=== PATIENT | female | born 1995 ===

== ENCOUNTER 2016-12-31 07:23 | Inpatient (IN) ==
[2016-12-31] MEDS ORDERED: BUTORPHANOL 2 MG/ML VIAL IV PRN (09:41)
[2016-12-31] MEDS ORDERED: ONDANSETRON 4 MG/2 ML VIAL IV PRN (09:41)
[2016-12-31] MEDS ORDERED: MEPERIDINE 50 MG/1 ML VIAL IV PRN (09:41)
[2016-12-31] MEDS ORDERED: OXYTOCIN/LR 20 UNIT/1,000 ML BAG IV SCH (10:00)
[2016-12-31] MEDS ORDERED: LACTATED RINGERS 1,000 ML IV SCH (10:00)
[2016-12-31 10:11] LABS: Basophils % 0.2 % (0.0-0.8); Eosinophils # 0.1 10*3/uL (0.0-0.87); Eosinophils % 1.5 % (0.00-10.9); Hematocrit 33.8 VOL% (35.7-47.0); Hemoglobin 11.9 GM/DL (12.0-16.0); Immature Granulocytes % 0.8 %; Immature Granulocytes Absolute 0.05 #; Lymphocytes # 1.4 10*3/uL (1.4-4.0); Lymphocytes % 23.3 % (21.3-54.2); Mean Corpuscular HGB Conc 35.2 GM/DL (32-36); Mean Corpuscular Hemoglobin 31 PG (27-34); Mean Corpuscular Volume 86.9 FL (87-102); Mean Platelet Volume 10.4 FL (9.6-12.0); Monocytes # 0.7 10*3/uL (0.11-0.8); Monocytes % 10.8 % (1.7-12.7); Neutrophils # 3.9 10*3/uL (1.4-7.4); Neutrophils % 63.4 % (38.7-73.9); Platelet Count 210 T/CUMM (130-400); Red Blood Count 3.89 MC/CUMM (3.8-5.5); Red Cell Distribution Width 12.7 % (9.3-17.3); White Blood Count 6.1 T/CUMM (4-12)
[2016-12-31 10:29] LABS: Albumin 2.8 G/DL (3.4-5.0); Bilirubin,Total 0.7 MG/DL (0.2-1.0); Calcium 7.9 MG/DL (8.5-10.1); Osmolality,Calculated 275.4 MOS/KG (273-304); Total Protein 6.2 G/DL (6.4-8.3); Uric Acid 4.9 MG/DL (2.6-6.0)
[2016-12-31] MEDS ORDERED: AMPICILLIN INJ 2,000 MG in SODIUM CHLORIDE 0.9% 50 ML IV SCH (10:30)
[2016-12-31] MEDS ORDERED: hydrOXYzine HCL 25 MG/1 ML VIAL IM PRN (11:26)
[2016-12-31] MEDS ORDERED: LACTATED RINGERS 1,000 ML IV ONE (11:26)
[2016-12-31] MEDS ORDERED: ePHEDrine 50 MG/ML AMP IV PRN (11:26)
[2016-12-31] MEDS ORDERED: PROMETHAZINE 25 MG/1 ML VIAL IM ONE (11:26)
[2016-12-31] MEDS ORDERED: FAMOTIDINE 20 MG/2 ML VIAL IV ONE (11:26)
[2016-12-31] MEDS ORDERED: fentaNYL 2 MCG/ROPIV 0.2% EPID 150 ML EPIDURAL SCH (11:26)
[2016-12-31] MEDS ORDERED: CITRIC ACID/SODIUM CITRATE 30 ML UDCUP PO ONE (11:26)
[2016-12-31] MEDS ORDERED: diphenhydrAMINE 50 MG/1 ML VIAL IV PRN (11:26)
[2016-12-31 15:24] LABS: Apearance,Urine CLEAR (Clear); Bilirubin,Urine Negative (Negative); Blood, Urine Negative (Negative); Glucose,Urine (UA) Negative (Negative); Ketones,Urine Negative (Negative); Mucus,Urine Occasional /LPF (Occasional); Nitrite,Urine Negative (Negative); Protein,Urine Negative; RBC,Urine 1 /HPF (0-4); Urine Color Yellow (Yellow); Urine Specific Gravity 1.009 (1.001-1.035); Urine Urobilinogen < 2.0 EU/DL (0.2-1.0); WBC,Urine 14 /HPF (0-6)
[2016-12-31] MEDS ORDERED: ACETAMINOPHEN 325 MG TABLET PO PRN (15:42)
[2016-12-31] MEDS ORDERED: BISACODYL 10 MG SUPP RECTAL PRN (15:42)
[2016-12-31] MEDS ORDERED: MEASLES/MUMPS/RUBELLA VACCINE 0.5 ML VIAL SUBCUT ONE (15:42)
[2016-12-31] MEDS ORDERED: BENZOCAINE 20%/MENTHOL 0.5% SPRAY 56 GM CAN TOP PRN (15:42)
[2016-12-31] MEDS ORDERED: IBUPROFEN 800 MG TABLET PO PRN (15:42)
[2016-12-31] MEDS ORDERED: oxyCODONE/ACETAMINOPHEN 5-325 MG TABLET PO PRN ×2 (15:42)
[2016-12-31] MEDS ORDERED: RHO(D) IMMUNE GLOBULIN 300 MCG SYRINGE IM ONE (15:42)
[2016-12-31] MEDS ORDERED: DIPH/TET/ACEL PERT BOOSTER VACCINE 0.5 ML VIAL IM ONE (15:42)
[2016-12-31] MEDS ORDERED: WITCH HAZEL PADS 100/JAR TOP PRN (15:42)
[2016-12-31] MEDS ORDERED: HYDROCORTISONE 2.5% RECTAL CREAM 30 GM TUBE TOP PRN (15:42)
[2016-12-31] MEDS ORDERED: LANOLIN 50% CREAM 0.3 OZ TUBE TOP PRN (15:42)
[2016-12-31] MEDS: DOCUSATE SODIUM 100 MG CAPSULE PO SCH (21:21)
[2017-01-01 05:57] LABS: Basophils % 0.1 % (0.0-0.8); Eosinophils # 0.1 10*3/uL (0.0-0.87); Eosinophils % 1.1 % (0.00-10.9); Hematocrit 29.9 VOL% (35.7-47.0); Hemoglobin 10.7 GM/DL (12.0-16.0); Immature Granulocytes % 0.5 %; Immature Granulocytes Absolute 0.04 #; Lymphocytes % 22.1 % (21.3-54.2); Mean Corpuscular HGB Conc 35.8 GM/DL (32-36); Mean Corpuscular Hemoglobin 31 PG (27-34); Mean Corpuscular Volume 86.2 FL (87-102); Mean Platelet Volume 11.1 FL (9.6-12.0); Monocytes # 0.9 10*3/uL (0.11-0.8); Monocytes % 10.4 % (1.7-12.7); Neutrophils # 5.8 10*3/uL (1.4-7.4); Neutrophils % 65.8 % (38.7-73.9); Platelet Count 214 T/CUMM (130-400); Red Blood Count 3.47 MC/CUMM (3.8-5.5); Red Cell Distribution Width 12.6 % (9.3-17.3); White Blood Count 8.8 T/CUMM (4-12)
[2017-01-01] MEDS: DOCUSATE SODIUM 100 MG CAPSULE PO SCH ×2 (09:19→21:33)
[2017-01-01] MEDS: AMPICILLIN 500 MG CAPSULE PO SCH (18:40)
[2017-01-02] MEDS: AMPICILLIN 500 MG CAPSULE PO SCH ×2 (00:08→06:19)
[2017-01-02 07:49] VITALS: BP 127/68
[2017-01-02] MEDS: DOCUSATE SODIUM 100 MG CAPSULE PO SCH (09:39)
== END 2017-01-02 12:45 | disposition home or self-care (01) | DRG 775 ==
LOC: N.LDOUT 07:23 → N.LD 10:19 → N.OB 12:52 → N.LD 13:14 → N.OB 17:22
PROVIDERS: ADMIT Obstetrics & Gynecology; ATTEND Obstetrics & Gynecology

== ENCOUNTER 2020-09-15 05:11 | Inpatient (IN) ==
[2020-09-15] MEDS ORDERED: ONDANSETRON 4 MG/2 ML VIAL IV PRN (05:23)
[2020-09-15] MEDS ORDERED: LACTATED RINGERS 1,000 ML IV PRN (05:23)
[2020-09-15 05:58] LABS: Basophils % 0.2 % (0.0-0.8); Eosinophils # 0.1 10*3/uL (0.0-0.87); Eosinophils % 0.9 % (0.00-10.9); Hematocrit 35.7 VOL% (35.7-47.0); Hemoglobin 11.3 GM/DL (12.0-16.0); Immature Granulocytes % 0.5 %; Immature Granulocytes Absolute 0.03 #; Lymphocytes # 1.6 10*3/uL (1.4-4.0); Lymphocytes % 23.5 % (21.3-54.2); Mean Corpuscular HGB Conc 31.7 GM/DL (32-36); Mean Corpuscular Volume 85.2 FL (87-102); Mean Platelet Volume 9.6 FL (9.6-12.0); Monocytes % 8.9 % (1.7-12.7); Platelet Count 264 T/CUMM (130-400); Red Blood Count 4.19 MC/CUMM (3.8-5.5); Red Cell Distribution Width 13.8 % (9.3-17.3); White Blood Count 6.6 T/CUMM (4-12)
[2020-09-15 06:18] LABS: Hypochromasia 1+; Microcytosis 1+; Platelet Estimate Normal
[2020-09-15 06:20] LABS: Bilirubin,Urine Negative (Negative); Blood, Urine Negative (Negative); Glucose,Urine (UA) Negative (Negative); Ketones,Urine Negative (Negative); Mucus,Urine Occasional /LPF (Occasional); Nitrite,Urine Negative (Negative); Protein,Urine Negative; Squamous Epithelial Cell,Urine Occasional /HPF (0-10); Urine Appearance CLEAR (Clear); Urine Color Yellow (Yellow); Urine Specific Gravity 1.012 (1.001-1.035); Urine Urobilinogen < 2.0 EU/DL (0.2-1.0)
[2020-09-15] MEDS ORDERED: OXYTOCIN/LR 20 UNIT/1,000 ML BAG IV SCH (06:20)
[2020-09-15 06:31] LABS: Bilirubin,Total 0.7 MG/DL (0.20-1.00); Calcium 8.5 MG/DL (8.5-10.1); Osmolality,Calculated 275.4 MOS/KG (273-304); Potassium 3.8 MMOL/L (3.5-5.1); Total Protein 7.1 G/DL (6.4-8.2)
[2020-09-15] MEDS ORDERED: MEPERIDINE 50 MG/1 ML VIAL IV PRN (13:36)
[2020-09-15] MEDS ORDERED: METHYLERGONOVINE 0.2 MG/1 ML AMP ONE (14:21)
[2020-09-15] MEDS ORDERED: miSOPROStoL 200 MCG TABLET ONE (14:21)
[2020-09-15] MEDS ORDERED: TRANEXAMIC ACID 1,000 MG/10 ML VIAL ONE (14:21)
[2020-09-15] MEDS ORDERED: CARBOPROST TROMETHAMINE 250 MCG/ML AMP IM ONE (14:22)
[2020-09-15 14:45] LABS: Cord Arterial Blood HCO3 25.9 MMOL/L
[2020-09-15 14:48] LABS: Cord Venous Blood HCO3 23.2 MMOL/L; Cord Venous Blood PCO2 41.8 MMHG; Cord Venous Blood PO2 32.3 MMHG
[2020-09-15] MEDS ORDERED: OXYTOCIN/LR 30 UNIT/1,000 ML BAG IV ONE (15:42)
[2020-09-15] MEDS ORDERED: ACETAMINOPHEN 325 MG TABLET PO PRN (17:47)
[2020-09-15] MEDS ORDERED: MEASLES/MUMPS/RUBELLA VACCINE 0.5 ML VIAL SUBCUT ONE (17:47)
[2020-09-15] MEDS ORDERED: BISACODYL 10 MG SUPP RECTAL PRN (17:47)
[2020-09-15] MEDS ORDERED: LANOLIN 50% CREAM 0.3 OZ TUBE TOP PRN (17:47)
[2020-09-15] MEDS ORDERED: oxyCODONE/ACETAMINOPHEN 5-325 MG TABLET PO PRN ×2 (17:47)
[2020-09-15] MEDS ORDERED: HYDROCORTISONE 2.5% RECTAL CREAM 30 GM TUBE TOP PRN (17:47)
[2020-09-15] MEDS ORDERED: RHO(D) IMMUNE GLOBULIN 300 MCG SYRINGE IM ONE (17:47)
[2020-09-15] MEDS ORDERED: OXYTOCIN/LR 20 UNIT/1,000 ML BAG IV ONE (17:47)
[2020-09-15] MEDS ORDERED: DIPH/TET/ACEL PERT BOOSTER VACCINE 0.5 ML VIAL IM ONE (17:47)
[2020-09-15] MEDS ORDERED: WITCH HAZEL PADS 100/JAR TOP PRN (17:47)
[2020-09-15] MEDS ORDERED: BENZOCAINE 20%/MENTHOL 0.5% SPRAY 56 GM CAN TOP PRN (17:47)
[2020-09-15] MEDS: IBUPROFEN 800 MG TABLET PO PRN (22:04)
[2020-09-15] MEDS: DOCUSATE SODIUM 100 MG CAPSULE PO SCH (22:04)
[2020-09-16 05:39] LABS: Basophils % 0.1 % (0.0-0.8); Eosinophils # 0.1 10*3/uL (0.0-0.87); Eosinophils % 0.5 % (0.00-10.9); Hematocrit 31.5 VOL% (35.7-47.0); Hemoglobin 10.1 GM/DL (12.0-16.0); Immature Granulocytes % 0.4 %; Immature Granulocytes Absolute 0.04 #; Lymphocytes # 2.1 10*3/uL (1.4-4.0); Lymphocytes % 20.4 % (21.3-54.2); Mean Corpuscular HGB Conc 32.1 GM/DL (32-36); Mean Corpuscular Volume 85.8 FL (87-102); Mean Platelet Volume 10.1 FL (9.6-12.0); Monocytes % 10.8 % (1.7-12.7); Neutrophils % 67.8 % (38.7-73.9); Platelet Count 238 T/CUMM (130-400); Red Blood Count 3.67 MC/CUMM (3.8-5.5); Red Cell Distribution Width 13.8 % (9.3-17.3); White Blood Count 10.3 T/CUMM (4-12)
[2020-09-16] MEDS: IBUPROFEN 800 MG TABLET PO PRN (05:46)
[2020-09-16 06:01] LABS: Hypochromasia 1+; Lymphocytes 26 % (20-55); Microcytosis 1+; Platelet Estimate Adequate; Segmented Neutrophils 69 % (50-85); Total Cells Counted 100
[2020-09-16] MEDS: DOCUSATE SODIUM 100 MG CAPSULE PO SCH ×2 (08:42→20:06)
[2020-09-17] MEDS: IBUPROFEN 800 MG TABLET PO PRN (03:33)
[2020-09-17] MEDS: DOCUSATE SODIUM 100 MG CAPSULE PO SCH (08:52)
[2020-09-17 10:47] VITALS: BP 117/54
== END 2020-09-17 12:21 | disposition home or self-care (01) | DRG 807 ==
LOC: N.LD 05:11 → N.OB 17:49
PROVIDERS: ADMIT Obstetrics & Gynecology; ATTEND Obstetrics & Gynecology

== ENCOUNTER 2022-01-29 00:50 | Inpatient (IN) ==
[2022-01-29] MEDS ORDERED: OXYTOCIN/LR 20 UNIT/1,000 ML BAG IV ONE ×4 (01:09→05:00)
[2022-01-29] MEDS: LACTATED RINGERS 1,000 ML IV SCH ×2 (01:20→22:33)
[2022-01-29] MEDS ORDERED: CARBOPROST TROMETHAMINE 250 MCG/ML AMP IM PRN (01:27)
[2022-01-29] MEDS ORDERED: ACETAMINOPHEN 325 MG TABLET PO PRN (01:27)
[2022-01-29] MEDS ORDERED: ONDANSETRON 4 MG/2 ML VIAL IV PRN (01:27)
[2022-01-29] MEDS ORDERED: METHYLERGONOVINE 0.2 MG/1 ML AMP IM PRN (01:27)
[2022-01-29] MEDS ORDERED: MEPERIDINE 25 MG/1 ML VIAL IV PRN (01:27)
[2022-01-29] MEDS ORDERED: miSOPROStoL 200 MCG TABLET RECTAL PRN (01:27)
[2022-01-29] MEDS ORDERED: oxyCODONE/ACETAMINOPHEN 5-325 MG TABLET PO PRN (01:27)
[2022-01-29] MEDS ORDERED: TRANEXAMIC ACID 1,000 MG in SODIUM CHLORIDE 0.9% 100 ML IV PRN (01:27)
[2022-01-29] MEDS ORDERED: LACTATED RINGERS 250 ML IV ONE (01:27)
[2022-01-29] MEDS ORDERED: LACTATED RINGERS 500 ML IV PRN (01:27)
[2022-01-29] MEDS ORDERED: AMPICILLIN INJ 2,000 MG in SODIUM CHLORIDE 0.9% 100 ML IV ONE (01:30)
[2022-01-29] MEDS ORDERED: miSOPROStoL 200 MCG TABLET ONE (01:31)
[2022-01-29] MEDS ORDERED: TRANEXAMIC ACID 1,000 MG/10 ML VIAL ONE (01:31)
[2022-01-29] MEDS ORDERED: SODIUM CHLORIDE 0.9% 0 ML IV ONE (01:31)
[2022-01-29] MEDS ORDERED: CARBOPROST TROMETHAMINE 250 MCG/ML AMP IM ONE (01:32)
[2022-01-29] MEDS ORDERED: METHYLERGONOVINE 0.2 MG/1 ML AMP ONE (01:32)
[2022-01-29 01:39] LABS: Basophils % 0.2 % (0.0-0.8); Eosinophils # 0.1 10*3/uL (0.0-0.87); Hematocrit 37.1 VOL% (35.7-47.0); Hemoglobin 12.1 GM/DL (12.0-16.0); Immature Granulocytes % 0.5 %; Immature Granulocytes Absolute 0.03 #; Lymphocytes # 1.7 10*3/uL (1.4-4.0); Lymphocytes % 25.4 % (21.3-54.2); Mean Corpuscular HGB Conc 32.6 GM/DL (32-36); Mean Corpuscular Volume 88.5 FL (87-102); Mean Platelet Volume 9.9 FL (9.6-12.0); Monocytes # 0.6 10*3/uL (0.11-0.8); Monocytes % 9.2 % (1.7-12.7); Neutrophils % 62.7 % (38.7-73.9); Platelet Count 257 T/CUMM (130-400); Red Blood Count 4.19 MC/CUMM (3.8-5.5); Red Cell Distribution Width 12.7 % (9.3-17.3); White Blood Count 6.7 T/CUMM (4-12)
[2022-01-29 01:57] LABS: Cord Arterial Blood HCO3 20.8 MMOL/L
[2022-01-29 01:59] LABS: Cord Venous Blood PCO2 40.8 MMHG
[2022-01-29] MEDS ORDERED: WITCH HAZEL PADS 100/JAR TOP PRN (05:00)
[2022-01-29] MEDS ORDERED: HYDROCORTISONE 2.5% RECTAL CREAM 30 GM TUBE TOP PRN (05:00)
[2022-01-29] MEDS ORDERED: LANOLIN 50% CREAM 0.3 OZ TUBE TOP PRN (05:00)
[2022-01-29] MEDS ORDERED: BISACODYL 10 MG SUPP RECTAL PRN (05:00)
[2022-01-29] MEDS ORDERED: BENZOCAINE 20%/MENTHOL 0.5% SPRAY 56 GM CAN TOP PRN (05:00)
[2022-01-29] MEDS ORDERED: IBUPROFEN 800 MG TABLET PO PRN (05:00)
[2022-01-29] MEDS ORDERED: RHO(D) IMMUNE GLOBULIN 300 MCG SYRINGE IM ONE (05:30)
[2022-01-29] MEDS ORDERED: MEASLES/MUMPS/RUBELLA VACCINE 0.5 ML VIAL SUBCUT ONE (05:30)
[2022-01-29] MEDS ORDERED: DIPH/TET/ACEL PERT BOOSTER VACCINE 0.5 ML VIAL IM ONE (05:30)
[2022-01-29] MEDS: DOCUSATE SODIUM 100 MG CAPSULE PO SCH ×2 (17:42→20:57)
[2022-01-29] MEDS: MULTIVITAMIN (PRENATAL) TABLET PO SCH (17:47)
[2022-01-29] MEDS ORDERED: INFLUENZA VIRUS VACCINE 0.5 ML SYRINGE IM ONE (22:30)
[2022-01-30 04:39] LABS: Basophils % 0.2 % (0.0-0.8); Eosinophils # 0.2 10*3/uL (0.0-0.87); Hematocrit 32.9 VOL% (35.7-47.0); Hemoglobin 10.6 GM/DL (12.0-16.0); Immature Granulocytes % 0.3 %; Immature Granulocytes Absolute 0.02 #; Lymphocytes # 2.1 10*3/uL (1.4-4.0); Lymphocytes % 31.9 % (21.3-54.2); Mean Corpuscular HGB Conc 32.2 GM/DL (32-36); Mean Corpuscular Volume 90.1 FL (87-102); Mean Platelet Volume 9.9 FL (9.6-12.0); Monocytes # 0.7 10*3/uL (0.11-0.8); Monocytes % 10.6 % (1.7-12.7); Platelet Count 237 T/CUMM (130-400); Red Blood Count 3.65 MC/CUMM (3.8-5.5); Red Cell Distribution Width 12.9 % (9.3-17.3); White Blood Count 6.6 T/CUMM (4-12)
[2022-01-30] MEDS: DOCUSATE SODIUM 100 MG CAPSULE PO SCH (10:19)
[2022-01-30] MEDS: MULTIVITAMIN (PRENATAL) TABLET PO SCH (10:19)
[2022-01-30 17:07] VITALS: BP 113/55
[2022-01-31] MEDS ORDERED: INFLUENZA VIRUS VACCINE 0.5 ML SYRINGE IM ONE (09:00)
== END 2022-01-30 15:10 | disposition home or self-care (01) | DRG 807 ==
LOC: N.LDOUT 00:50 → N.LD 00:55 → N.OB 18:33
PROVIDERS: ADMIT Obstetrics & Gynecology; ATTEND Obstetrics & Gynecology